=== PATIENT | female | born 1965 | race Caucasian/White ===

== ENCOUNTER 2018-06-16 09:39 | Emergency (ER) | payer BC ==
[2018-06-16] MEDS ORDERED: IPRATROPIUM/ALBUTEROL (0.5MG/3MG) NEB INH ONE (09:52)
--- NOTE | 2018-06-16 10:10 | Emergency Department Record ---
History of Present Illness - General Chief Complaint: Cough Stated Complaint: COUGH/CHEST CONJESTION Time Seen by Provider: 06/16/18 09:53 Source: Patient Mode of Arrival: Ambulatory Limitations: No limitations - History of Present Illness Initial Comments: The patient is here due to a 5 day hx of worsening cough and congestion. She was seen in the urgent care 6 days ago and given a Zpak which she just finished. Now her cough and congestion are worsening and she also has mild SOB. There has been no fever, chills, CP, or vomiting. MD Complaint: Cough, Nasal congestion, Rhinorrhea Onset/Timin -: Week(s) - Related Data Previous Rx's Medication Instructions Recorded Albuterol Sulfate [Proair Hfa] 2 puff IH QID PRN #1 inhaler 06/16/18 Prednisone [Prednisone 20Mg] 40 mg PO DAILY #10 tab 06/16/18 Promethazine HCl/Codeine 5 - 10 ml PO .AT BEDTIME PRN #120 06/16/18 [Phenergan W/Codeine] ml Allergies Allergy/AdvReac Type Severity Reaction Status Date / Time Penicillins Allergy Intermediate Unverified 06/10/18 14:29 cholecalciferol (vitamin D3) Allergy Unverified 06/10/18 14:29 [From Vitamin D3] Sulfa (Sulfonamide Allergy Unverified 06/10/18 14:29 Antibiotics) Travel Screening - Travel/Exposure Within Last 30 Days Have you traveled within the last 30 days?: No - Travel/Exposure Within Last Year Have you traveled outside the [place] in the last year?: No - Additonal Travel Details Have you been exposed to anyone with a communicable illness?: No - Travel Symptoms Symptom Screening: None Review of Systems Constitutional: Denies: Chills, Fever Eyes: Denies: Eye discharge ENT: Reports: Congestion, Other Respiratory: Reports: Cough, Dyspnea Past Medical History - SOCIAL HISTORY Smoking Status: Light tobacco smoker (<10/day) Alcohol Use: Occasional Drug Use: None - RESPIRATORY Hx Respiratory Disorders: Yes Hx Asthma: Yes - CARDIOVASCULAR Hx Cardio Disorders: No - NEURO Hx Neuro Disorders: No - GI Hx GI Disorders: No - Hx Genitourinary Disorders: Yes Hx UTI: Yes - ENDOCRINE Hx Endocrine Disorders: No - MUSCULOSKELETAL Hx Musculoskeletal Disorders: No - PSYCH Hx Psych Problems: No - HEMATOLOGY/ONCOLOGY Hx Hematology/Oncology Disorders: No Family Medical History Any Significant Family History?: No Physical Exam - General General Appearance: Alert, Oriented x3, Cooperative, No acute distress - Head Head exam: Atraumatic, Normocephalic, Normal inspection - Eye Eye exam: Normal appearance, PERRL, EOMI - ENT Throat exam: Tonsillar erythema. negative: Normal inspection, Tonsillomegaly, Tonsillar exudate - Neck Neck exam: Normal inspection, Full ROM. negative: Lymphadenopathy, Meningismus , Tenderness - Respiratory Respiratory exam: Normal lung sounds bilaterally. negative: Decreased breath sounds, Respiratory distress, Rhonchi, Stridor, Wheezes - Cardiovascular Cardiovascular Exam: Regular rate, Normal rhythm, Normal heart sounds - GI/Abdominal GI/Abdominal exam: Soft, Normal bowel sounds. negative: Tenderness - Extremities Extremities exam: Normal inspection, Full ROM, Normal capillary refill. negative: Tenderness - Neurological Neurological exam: Alert. negative: Motor sensory deficit Course Vital Signs 06/16/18 06/16/18 09:44 09:54 Temperature 98.4 F Pulse Rate 74 81 Respiratory 16 18 Rate Blood Pressure 138/86 Pulse Ox 98 99 - Reevaluation(s) Reevaluation #1: The patient is doing very well but she is still coughing. I did discuss the CXR and lab results which all indicate a viral URI. She is to continue the inhaller at home and also the Prednisone along with a cough medicine. She is to see a family doctor if not better in 2-3 days and is to return to the ER for any worsening cough or any SOB, RONNIE, or fever. 06/16/18 10:53 Medical Decision Making - Data Complexity MDM Data: Labs Ordered and/or Reviewed, X-Ray Ordered and/or Reviewed (CXR: Lingula atelectasis vs early infection per Rad.) - Lab Data Result diagrams: 06/16/18 10:12 Disposition Disposition: Discharge Clinical Impression: Viral URI with cough Disposition: Home, Self-Care Condition: (2) Stable Instructions: Acute Bronchitis (ED) Additional Instructions: Please continue the inhaller at home and continue the Prednisone starting tomorrow. Please take a cough medicine also. Please see a family doctor if not better in 2-3 days and return to the ER for any worsening cough, or any fever or shortness of breath. Prescriptions: Albuterol Sulfate [Proair Hfa] 2 puff IH QID PRN #1 inhaler PRN Reason: Cough And Difficulty Breathing Prednisone [Prednisone 20Mg] 40 mg PO DAILY #10 tab Promethazine HCl/Codeine [Phenergan W/Codeine] 5 - 10 ml PO .AT BEDTIME PRN # 120 ml PRN Reason: Cough Forms: Patient Portal Access Time of Disposition: 10:57 Quality - Quality Measures Quality Measures: N/A - Blood Pressure Screening View Details: Yes Does Patient Have Any of the Following: No Blood Pressure Classification: Pre-Hypertensive BP Reading Systolic Measurement: 138 Diastolic Measurement: 86 Screening for High Blood Pressure: < Pre-Hypertensive BP, F/U Documented > [ G8950] Pre-Hypertensive Follow-up Interventions: Referral to alternative/primary care provider.
[2018-06-16] MEDS ORDERED: PREDNISONE 20 MG TAB PO ONE (10:13)
[2018-06-16 10:15] LABS: BASO % 0.5 % (0-6); EOS % 6.1 % (0-6); GRAN % 36.7 % (47-80); HEMATOCRIT 43.5 % (35.0-47.0); HEMOGLOBIN 14.5 gm/dl (11.6-16.0); MEAN CELL VOLUME 100.9 fl (81-97); MEAN CORPUSCULAR HEMOGLOBIN 33.6 pg (27-33); MEAN CORPUSCULAR HGB CONC 33.3 g/dl (32-36); MONO % 8.7 % (0-9); PLATELET COUNT 271 K/uL (130-400); RED BLOOD COUNT 4.31 M/uL (3.80-5.40); RED CELL DISTRIBUTION WIDTH 11.9 % (11.5-14.5); WHITE BLOOD COUNT W/O DIFF 7.7 K/uL (4.2-12.2)
--- NOTE | 2018-06-18 05:28 | RADIOLOGY REPORT ---
DATE: 06/16/2018. EXAM: TWO-VIEW CHEST RADIOGRAPH. HISTORY: COUGH, CONGESTION, AND SHORTNESS OF BREATH FOR ONE WEEK. TECHNIQUE: PA and lateral views of the chest. COMPARISON: None. FINDINGS: The cardiac silhouette is within normal size limits. Mild tortuosity of the thoracic aorta. Pulmonary vasculature is nondilated. There is minimal focal opacity in the lingula of the left upper lobe which is most suggestive of atelectasis. No other focal pulmonary opacities appreciated. No pleural fluid collection or pneumothorax. No definite acute osseous findings. IMPRESSION: MINIMAL LINGULAR OPACITY WHICH IS MOST SUGGESTIVE OF ATELECTASIS, ALTHOUGH SUBTLE AIR SPACE DISEASE COULD HAVE A SIMILAR APPEARANCE IN THE APPROPRIATE CLINICAL SETTING. JOB NUMBER: [id number] MTDD
== END 2018-06-16 11:07 | disposition home or self-care (01) ==
LOC: ER 09:39
DX: J06.9 Acute upper respiratory infection, unspecified (principal); R05 Cough; R06.02 Shortness of breath; F17.210 Nicotine dependence, cigarettes, uncomplicated
CPT/HCPCS: 99283; 99284; 85025; 84145; 71046; 94640; J7512

== ENCOUNTER 2018-12-08 17:24 | Emergency (ER) | payer BC ==
[2018-12-08] MEDS ORDERED: Diph,Pert(Acell),Tet Vac 0.5 ML SYR IM ONE (17:33)
--- NOTE | 2018-12-08 17:42 | Emergency Department Record ---
History of Present Illness - General Chief Complaint: Laceration(s) Stated Complaint: LT THUMB LAC Time Seen by Provider: 12/08/18 17:32 Source: Patient, Family Mode of Arrival: Ambulatory Limitations: No limitations - History of Present Illness Initial Commments: 53 yo female presents with a laceration to her left thumb. 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 She has full ROM without difficulty. No weakness. No numbness or tingling. Her last tetanus is about 10 years ago. Onset/Timin -: Minutes(s) Extremity Location: Left: Hand Place: Home Context: Accidental, Sharp object use Associated Symptoms: None Treatments Prior to Arrival: Bandage - Vera Coma Scale Eye Response: (4) Open spontaneously Motor Response: (6) Obeys commands Verbal Response: (5) Oriented Gi Total: 15 - Related Data Hx Tetanus Toxoid Vaccination: Yes Patient Tetanus UTD (within 5 yrs): No Home Medications Medication Instructions Recorded Confirmed Last Taken No Home Med [NO HOME MEDS] 12/08/18 12/08/18 Unknown Allergies Allergy/AdvReac Type Severity Reaction Status Date / Time Penicillins Allergy Intermediate HIVES Verified 12/08/18 17:35 cholecalciferol (vitamin D3) Allergy PT UNSURE Verified 12/08/18 17:35 [From Vitamin D3] OF REACTION Sulfa (Sulfonamide Allergy HIVES Verified 12/08/18 17:35 Antibiotics) Travel Screening - Travel/Exposure Within Last 30 Days Have you traveled within the last 30 days?: No Review of Systems Constitutional: Denies: Chills, Fever, Malaise, Weakness Eyes: Denies: Eye discharge ENT: Denies: Congestion, Throat pain Respiratory: Denies: Cough Cardiovascular: Denies: Chest pain, Palpitations, Syncope Endocrine: Denies: Fatigue Gastrointestinal: Denies: Abdominal pain, Diarrhea, Nausea, Vomiting Genitourinary: Denies: Dysuria Musculoskeletal: Reports: Other. Denies: Arthralgia, Joint swelling, Myalgia Skin: Reports: Other (Laceration). Denies: Bruising, Change in color, Rash Neurological: Denies: Headache, Numbness, Tingling, Weakness Psychiatric: Denies: Anxiety Hematological/Lymphatic: Denies: Easy bleeding, Easy bruising Past Medical History - SOCIAL HISTORY Smoking Status: Light tobacco smoker (<10/day) - RESPIRATORY Hx Respiratory Disorders: Yes Hx Asthma: Yes - CARDIOVASCULAR Hx Cardio Disorders: No - NEURO Hx Neuro Disorders: No - GI Hx GI Disorders: No - Hx Genitourinary Disorders: Yes Hx UTI: Yes - ENDOCRINE Hx Endocrine Disorders: No - MUSCULOSKELETAL Hx Musculoskeletal Disorders: No - PSYCH Hx Psych Problems: No - HEMATOLOGY/ONCOLOGY Hx Hematology/Oncology Disorders: No Family Medical History Any Significant Family History?: No Physical Exam - General General Appearance: Alert, Oriented x3, Cooperative, No acute distress Limitations: No limitations - Head Head exam: Atraumatic, Normal inspection - Eye Eye exam: Normal appearance, PERRL. negative: Conjunctival injection, Scleral icterus - ENT ENT exam: Normal exam Ear exam: Normal external inspection Nasal Exam: Normal inspection Mouth exam: Normal external inspection - Neck Neck exam: Normal inspection - Respiratory Respiratory exam: Normal lung sounds bilaterally. negative: Respiratory distress - Cardiovascular Peripheral Pulses: 2+: Radial (L) - Extremities Extremities exam: Full ROM, Normal capillary refill. negative: Normal inspection, Joint swelling, Tenderness - Neurological Neurological exam: Alert, Oriented X3 - Psychiatric Psychiatric exam: Normal affect, Normal mood - Skin Skin exam: Other (Laceration) Course Vital Signs 12/08/18 17:30 Temperature 98.3 F Pulse Rate 76 Respiratory 18 Rate Blood Pressure 160/99 Pulse Ox 98 - Reevaluation(s) Reevaluation #1: Digital Block Betadine prep after Gerber vargasak Lidocaine 1% Plain with Bupivicaine 50/50 mix 3.5ml Digital Block 12/08/18 17:40 12/08/18 18:26 The wound was copiously irrigated with NS The dorsal surface of the extensor tendon appears to have partial laceration Procedure Note 1.5 cm laceration of the left thumb Wound was cleaned and prepped in sterile fashion, no residual FB identified on examination. There appears to be a dorsal laceration of the extensor tendon of the thumb but the ROM is intact The wound was copiously irrigated with NS The laceration was repaired with 4-0 Ethilon sutures in interrupted fashion. 5 sutures placed Patient tolerated the procedure well without complications. We discussed home care, reasons for immediate return if any concerns, and suture removal in 10 days I explained with a possible tendon injury she will be splinted and given a number for referral to a hand surgeon She will be splinted and given an antibiotic as well Disposition Disposition: Discharge Clinical Impression: Laceration of thumb Qualifiers: Encounter type: initial encounter Damage to nail status: without damage Foreign body presence: without foreign body Laterality: left Qualified Code(s): S61.012A - Laceration without foreign body of left thumb without damage to nail , initial encounter Disposition: Home, Self-Care Condition: (1) Good Instructions: Laceration (ED) Additional Instructions: Use the thumb splint for support and comfort. Do not bend the thumb Return if warm, red, pus, or any other concerns with the healing of the laceration Return sooner if you have any concerns Return for suture removal in 10 days Call the number provided for the hand surgery for followup to evaluate for partial extensor tendon injury Referrals: CHARISSE METCALF M.D. [MEDICAL DOCTOR] - Forms: Patient Portal Access Time of Disposition: 18:30 Quality - Quality Measures Quality Measures: N/A - Blood Pressure Screening Does Patient Have Any of the Following: No Blood Pressure Classification: Hypertensive Reading Systolic Measurement: 160 Diastolic Measurement: 99 Screening for High Blood Pressure: < Pre-Hypertensive BP, F/U Documented > [ G8950] Pre-Hypertensive Follow-up Interventions: Referral to alternative/primary care provider.
[2018-12-08] MEDS ORDERED: CEPHALEXIN 500 MG CAPSULE PO STA (18:25)
== END 2018-12-08 19:00 | disposition home or self-care (01) ==
LOC: ER 17:24
DX: S61.012A Laceration without foreign body of left thumb without damage to nail, initial encounter (principal); S66.222A Laceration of extensor muscle, fascia and tendon of left thumb at wrist and hand level, initial encounter; W26.8XXA Contact with other sharp object(s), not elsewhere classified, initial encounter; Y93.G1 Activity, food preparation and clean up; Y92.009 Unspecified place in unspecified non-institutional (private) residence as the place of occurrence of the external cause; F17.210 Nicotine dependence, cigarettes, uncomplicated
CPT/HCPCS: 12041; 90715; 96372; 99283; 99284